=== PATIENT | female | born 2000 | race Caucasian/White ===

== ENCOUNTER 2018-05-02 01:40 | Emergency (ER) | payer SELFPAY ==
[2018-05-02 01:40] VITALS: BP 135/80; PULSE 123; RESP 18; TEMP 37.1; O2SAT 100
[2018-05-02 02:37] LABS: WBC Urine None Seen (0-5/HPF)
[2018-05-02 02:40] LABS: Appearance Urine UA CLEAR; Bilirubin Urine UA NEGATIVE (NEGATIVE); Color Urine UA YELLOW; Glucose Urine UA NEGATIVE (Normal); Ketones Urine UA NEGATIVE (NEGATIVE); Leukocyte Esterase Urine UA NEGATIVE (NEGATIVE); Nitrite Urine UA NEGATIVE (Negative); Occult Blood Urine UA NEGATIVE (Negative); Protein Urine UA NEGATIVE (Negative); Urobilinogen Urine UA 0.2 E.U./dL (0.2)
[2018-05-02 02:42] LABS: Pregnancy Test Urine Negative (Negative)
[2018-05-02 02:43] LABS: Bacteria Urine Few (2-10); Culture Indicated Urine Cult Not Indicated; RBC Urine 0-1/HPF (0-5/HPF); Squamous Epithelial Cell Urine 0-1 /HPF
[2018-05-02 02:56] VITALS: PULSE 103
--- NOTE | 2018-05-02 03:10 | DI.US.S_ITS ---
PROCEDURE: US ABDOMEN COMPLETE INDICATIONS: RLQ pain TECHNIQUE: Real-time scanning was performed of the abdominal and retroperitoneal organs, with image documentation. COMPARISON: None. FINDINGS: Liver: Liver is normal in size and homogeneous in echotexture. Gallbladder: The gallbladder wall measures 2 mm in thickness. No stones, sludge, pericholecystic fluid, or sonographic Childress sign. Biliary ducts: Intrahepatic bile ducts are non-dilated. Extrahepatic bile duct caliber measures 6 mm. Normal is 6-7 mm or less in diameter, or 10 mm or less post-cholecystectomy. Pancreas: Pancreas is not visualized due to bowel gas. Spleen: Spleen is normal in size and homogeneous in echotexture. Kidneys: Kidneys are normal in size and echotexture. Right kidney measures 11.7 cm long; left kidney measures 11.1 cm long. No hydronephrosis or nephrolithiasis. No solid masses. Aorta: Visualized aorta is normal in caliber at less than 3 cm. Iliacs: The iliacs are non-visualized due to bowel gas. IVC: Intrahepatic inferior vena cava is patent. Miscellaneous: No free abdominal fluid. The appendix was not visualized. IMPRESSION: 1. No cholelithiasis or findings to suggest choledocholithiasis or acute cholecystitis. 2. The appendix is not visualized. Acute appendicitis cannot be excluded. These findings are concordant with the overnight interpretation. Dictated by: Isabel Andrews M.D. on 05/02/2018 at 8:20 Approved by: Isabel Andrews M.D. on 05/02/2018 at 8:21
--- NOTE | 2018-05-02 03:21 | ED_ITS ---
HPI - Abdominal Pain General Chief Complaint: Abdominal Pain Stated Complaint: STOMACH PAINS X1 DAYS Time Seen by Provider: 05/02/18 03:10 Source: patient Mode of arrival: ambulatory History of Present Illness HPI narrative: This is a 17-year-old female who comes to the emergency department with complaint of right-sided abdominal pain. Patient states that started this evening. She has had similar symptoms once remotely in the past but it resolved. She states that it is pretty much constant. Laughing or jumping up and down makes it worse. Nothing seems to make it better other than having a warm heating pad across her belly. Patient has not had any vomiting she felt a little nauseous earlier. She has not had any fevers. She denies any back or flank pain. She has not had any diarrhea or constipation. She has not had any urinary frequency, urgency or dysuria. She is on her menses. She states that is normally irregular Related Data Previous Rx's Medication Instructions Recorded sumatriptan succinate [Imitrex] 50 mg PO PRN PRN #10 tab 06/03/16 [DANIEL IUD] #0 06/24/16 albuterol sulfate [Ventolin HFA] 1 puff INH Q4HP PRN #1 ea 07/30/16 acetaminophen-codeine 1 tab PO Q6HP PRN #20 tab 11/30/16 amoxicillin 875 mg PO BID #14 tab 11/30/16 Allergies Allergy/AdvReac Type Severity Reaction Status Date / Time cefuroxime Allergy Unknown Unverified 10/21/17 11:48 Review of Systems Review of Systems All systems reviewed & are unremarkable except as noted in HPI and below Constitutional Denies fever(s) Gastrointestinal Gastrointestinal: Reports abdominal pain (Right lower quadrant), Denies melena, Denies hematochezia, Denies constipation, Denies diarrhea, Reports nausea and Denies vomiting Genitourinary Reports as per HPI, Denies urinary frequency, Denies urinary incontinence, Denies urinary hesitancy, Denies urinary urgency, Denies vaginal discharge, Denies vaginal odor and Reports other (Vaginal bleeding, patient is on her.) Musculoskeletal Denies back pain PFSH Surgical History H/O eye surgery (Acute) Social History Smoking Status: Never smoker alcohol intake: former substance use type: marijuana Exam Narrative Exam Narrative: GENERAL: Alert and oriented x three, well-nourished, well- appearing female in mild distress. HEENT: Head normocephalic, atraumatic, EOMI, pupils reactive, face symmetric, moist mucous membranes NECK: Supple, full range of motion CARDIOVASCULAR: Regular rate and rhythm without murmurs, rubs or gallops. RESPIRATORY: Breath sounds equal bilaterally, no wheezes rales or rhonchi. ABDOMEN: Soft, patient has mild right lower quadrant tenderness although it is a little bit more suprapubic.. Normoactive bowel sounds all 4 quadrants. No guarding or rebound, rigidity, no mass : No CVA tenderness EXTREMITIES: Normal range of motion, no clubbing or edema. Neurovascularly intact NEUROLOGICAL: Cranial nerves II through XII grossly intact. Moving all extremities SKIN: Warm, dry, no petechiae, no rashes or lesions. Initial Vital Signs Initial Vital Signs: Vital Signs Temperature 98.7 F 05/02/18 01:40 Pulse Rate 123 H 05/02/18 01:40 Respiratory Rate 18 05/02/18 01:40 Blood Pressure 135/80 05/02/18 01:40 Pulse Oximetry 100 05/02/18 01:40 Course Orders Ordered: ED Orders 05/02/18 02:30 Test Urine Stat Urinalysis and Microscopic Stat 05/02/18 03:10 US abdomen complete Stat 05/02/18 03:18 Complete Blood Count AUTO DIFF Stat Comprehensive Metabolic Panel Stat Lipase Stat Discontinued Medications Sodium Chloride (Normal Saline 0.9%) 1,000 mls @ 150 mls/hr IV CONT NING Last Admin: 05/02/18 04:28 Dose: Vital Signs - 8 hr 05/02/18 01:40 05/02/18 02:56 05/02/18 04:30 Temperature 98.7 F Pulse Rate 123 H 103 H 91 H Respiratory Rate 18 Blood Pressure 135/80 Blood Pressure [Left Arm] 90/47 L Pulse Oximetry 100 99 05/02/18 05:00 Temperature 98.9 F Pulse Rate 91 H Respiratory Rate Blood Pressure 125/62 Blood Pressure [Left Arm] Pulse Oximetry 100 MDM - Abdominal Pain Lab Data Attestation: I reviewed the patient's lab results. Result diagrams: 05/02/18 03:18 05/02/18 03:18 Lab Results 05/02/18 05/02/18 05/02/18 Range/Units 02:30 02:30 03:18 WBC 19.8 H (4.5-11.0) X10^3/uL RBC 4.43 (4.0-5.2) X10^6/uL Hgb 13.9 (12.0-16.0) g/dL Hct 40.3 (36-46) % MCV 91.0 (80-100) fL MCH 31.4 (26-34) PG MCHC 34.5 (30-36) % RDW 12.1 (11.6-14.8) % Plt Count 297 (150-400) X10^3/uL Neut % (Auto) 80.2 H (50-75) % Lymph % (Auto) 9.5 L (25-40) % [place] % (Auto) 9.3 (3-14) % Eos % (Auto) 0.3 L (2-4) % Baso % (Auto) 0.7 (0-2) % Neut # (Auto) 40963 H (6316-8328) /uL Sodium (137-145) mmol/L Potassium (3.4-5.1) mmol/L Chloride (98-107) mmol/L Carbon Dioxide (22-32) mmol/L BUN (7-17) mg/dL Creatinine (0.52-1.04) mg/dL Estimated GFR (>60) mL/min BUN/Creatinine Ratio (6-22) Glucose (70-100) mg/dL Calcium (8.4-10.2) mg/dL Total Bilirubin (0.2-1.3) mg/dL AST (14-36) IU/L ALT (9-52) IU/L Alkaline Phosphatase (38-126) U/L Total Protein (6.3-8.2) g/dL Albumin (3.5-5.0) g/dL Globulin (1.7-4.1) g/dL Albumin/Globulin Ratio (1.0-2.8) Lipase (23-300) U/L Urine Color Yellow Urine Appearance Clear Urine pH 6.0 (4.5-8.0) Ur Specific [place] 1.020 (1.000-1.035) Urine Protein Negative (Negative) Urine Glucose (UA) Negative (Normal) g/dL Urine Ketones Negative (NEGATIVE) Urine Occult Blood Negative (Negative) Urine Nitrate Negative (Negative) Urine Bilirubin Negative (NEGATIVE) Urine Urobilinogen 0.2 (0.2) E.U./dL Ur Leukocyte Esterase Negative (NEGATIVE) Urine RBC 0-1/hpf (0-5/HPF) Urine WBC None seen (0-5/HPF) Ur Squamous Epith Cells 0-1 /hpf Urine Bacteria Few (2-10) H (None) Ur Culture Indicated? Cult not indicated Micro UA Comment Not Reportable Urine Test Negative (Negative) 05/02/18 Range/Units 03:18 WBC (4.5-11.0) X10^3/uL RBC (4.0-5.2) X10^6/uL Hgb (12.0-16.0) g/dL Hct (36-46) % MCV (80-100) fL MCH (26-34) PG MCHC (30-36) % RDW (11.6-14.8) % Plt Count (150-400) X10^3/uL Neut % (Auto) (50-75) % Lymph % (Auto) (25-40) % [place] % (Auto) (3-14) % Eos % (Auto) (2-4) % Baso % (Auto) (0-2) % Neut # (Auto) (9041-6161) /uL Sodium 145 (137-145) mmol/L Potassium 3.7 (3.4-5.1) mmol/L Chloride 106 (98-107) mmol/L Carbon Dioxide 27 (22-32) mmol/L BUN 13 (7-17) mg/dL Creatinine 0.60 (0.52-1.04) mg/dL Estimated GFR > 60.0 (>60) mL/min BUN/Creatinine Ratio 21.7 (6-22) Glucose 107 H (70-100) mg/dL Calcium 9.6 (8.4-10.2) mg/dL Total Bilirubin 0.5 (0.2-1.3) mg/dL AST 21 (14-36) IU/L ALT 29 (9-52) IU/L Alkaline Phosphatase 70 (38-126) U/L Total Protein 7.2 (6.3-8.2) g/dL Albumin 4.2 (3.5-5.0) g/dL Globulin 3.0 (1.7-4.1) g/dL Albumin/Globulin Ratio 1.4 (1.0-2.8) Lipase 64 (23-300) U/L Urine Color Urine Appearance Urine pH (4.5-8.0) Ur Specific [place] (1.000-1.035) Urine Protein (Negative) Urine Glucose (UA) (Normal) g/dL Urine Ketones (NEGATIVE) Urine Occult Blood (Negative) Urine Nitrate (Negative) Urine Bilirubin (NEGATIVE) Urine Urobilinogen (0.2) E.U./dL Ur Leukocyte Esterase (NEGATIVE) Urine RBC (0-5/HPF) Urine WBC (0-5/HPF) Ur Squamous Epith Cells Urine Bacteria (None) Ur Culture Indicated? Micro UA Comment Urine Test (Negative) Imaging Data US - abdomen: Attestation: I personally reviewed and interpreted this imaging study as follows: Radiologist's impression: Nonvisualized appendix. No suspicious right lower quadrant findings. Nonvisualized pancreas. MDM Narrative Medical decision making narrative: The patient does have right lower quadrant pain. We discussed getting a CT scan but she prefers to start with ultrasound imaging. We did discuss if her white count is quite elevated we may need to discuss further evaluation. Her urine does not show any signs of infection, no . Lab work shows an elevated white count but no other major abnormalities. Patient deferred any pain medications. We did go back and discuss that she has an elevated white count discussed watchful waiting versus further evaluation with imaging. I do have suspicion for possible appendicitis. Patient wishes to return home at this time. She defers CT imaging although it was read offered she does have tenderness in the right lower quadrant but she does not have an acute abdomen in her tenderness is mild to moderate. She has not increased in her level tenderness during her stay here. She has not had any pain medication while she is here. She does relate she needs to return if her symptoms are not improving or worsening. Discharge Plan Departure Patient Disposition: Home Clinical Impression: Abdominal pain Discharge Date/Time: 05/02/18 05:01 Interventions: ED Discharge Assessment Last Done: 05/02/18 05:00 Instructions: DI for Abdominal Pain-Adult Activity Restrictions/Additional Instructions: Return to the emergency department if you're having any worsening symptoms or if they are not resolving in the next 12-24 hours. Tonight your lab work does show an elevated white count which can be consistent with infection and appendicitis. We have not ruled out an appendicitis, your ultrasound does not visualize the appendix and you are having tenderness in the right lower quadrant. As we have discussed return if your symptoms don't improve or resolve. You may take ibuprofen or Tylenol as needed for pain. Prescriptions: No Action sumatriptan succinate [Imitrex] 50 MG tablet 50 mg PO PRN PRNQty: 10 RF: 0 [DANIEL IUD] Qty: 0 RF: 0 albuterol sulfate [Ventolin HFA] 90 MCG/PUFF HFA aerosol inhaler 1 puff INH Q4HP PRNQty: 1 RF: 0 acetaminophen-codeine 30 MG/300 MG tablet 1 tab PO Q6HP PRNQty: 20 RF: 0 amoxicillin 875 MG tablet 875 mg PO BID Qty: 14 RF: 0
[2018-05-02 03:27] LABS: Add Manual Diff / Slide Review NO; Basophils Percent Auto 0.7 % (0-2); Eosinophils Percent Auto 0.3 % (2-4); Hematocrit 40.3 % (36-46); Hemoglobin 13.9 g/dL (12.0-16.0); Lymphocytes Percent Auto 9.5 % (25-40); Mean Corpuscular HGB Conc 34.5 % (30-36); Mean Corpuscular Hemoglobin 31.4 PG (26-34); Monocytes Percent Auto 9.3 % (3-14); Neutrophils Absolute Auto 15800 /uL (3000-5900); Neutrophils Percent Auto 80.2 % (50-75); Platelet Count 297 X10^3/uL (150-400); Red Blood Cell Count 4.43 X10^6/uL (4.0-5.2); Red Cell Distribution Width 12.1 % (11.6-14.8); White Blood Cell Count 19.8 X10^3/uL (4.5-11.0)
[2018-05-02 03:39] LABS: Alanine Aminotransferase 29 IU/L (9-52); Albumin 4.2 g/dL (3.5-5.0); Albumin Globulin Ratio 1.4 (1.0-2.8); Alkaline Phosphatase 70 U/L (38-126); Aspartate Aminotransferase 21 IU/L (14-36); BUN Creatinine Ratio 21.7 (6-22); Bilirubin Total 0.5 mg/dL (0.2-1.3); Blood Urea Nitrogen 13 mg/dL (7-17); Calcium 9.6 mg/dL (8.4-10.2); Carbon Dioxide 27 mmol/L (22-32); Chloride 106 mmol/L (98-107); Estimated Glomerular Filt Rate > 60.0 mL/min (>60); Glucose 107 mg/dL (70-100); HEMOLYSIS < 15 (0-50); Lipase 64 U/L (23-300); Potassium 3.7 mmol/L (3.4-5.1); Sodium 145 mmol/L (137-145); Total Protein 7.2 g/dL (6.3-8.2)
[2018-05-02 04:30] VITALS: BP 90/47; PULSE 91; O2SAT 99
[2018-05-02 05:00] VITALS: BP 125/62; PULSE 91; TEMP 37.2; O2SAT 100
== END 2018-05-02 05:01 | disposition home or self-care (01) ==
PROVIDERS: Emergency Provider Emergency Medicine; PCP Family Medicine
DX: R10.9 Unspecified abdominal pain (principal)
CPT/HCPCS: 36415; 36591; 76700; 80053; 81001; 81025; 83690; 85025; 99282; 99284

== ENCOUNTER 2019-09-02 21:12 | Emergency (ER) | payer OTHER, MEDICAID, SELFPAY ==
[2019-09-02 21:30] VITALS: BP 149/76; PULSE 95; RESP 14; TEMP 36.8; O2SAT 99; BMI 38.0
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
[2019-09-02 21:53] VITALS: BP 130/60; PULSE 103; RESP 15; O2SAT 98
== END 2019-09-02 21:54 | disposition home or self-care (01) ==
PROVIDERS: Emergency Provider Emergency Medicine; PCP Family Medicine
DX: S16.1XXA Strain of muscle, fascia and tendon at neck level, initial encounter (principal); V87.7XXA Person injured in collision between other specified motor vehicles (traffic), initial encounter
CPT/HCPCS: 99281

== ENCOUNTER → 2019-10-08 15:41 | Outpatient (CLI) | payer OTHER, SELFPAY | PROVIDERS: Visit Provider Physician Assistant | DX: J02.9 Acute pharyngitis, unspecified (principal) | CPT/HCPCS: 87070 ==

== ENCOUNTER → 2021-01-21 13:45 | Outpatient (CLI) | payer OTHER, MEDICAID, SELFPAY ==
--- NOTE | 2021-01-21 13:47 | DI.US.S_ITS ---
PROCEDURE: US OB <= 14 WEEKS FETUS INDICATIONS: Dating Viability OUTSIDE/PRIOR DATING DATA: Last menstrual period (LMP): 11/25/2020. LMP-based estimated date of delivery (ABIOLA): 09/01/2021. First dating scan (date and location): 01/21/2021. Estimated date of delivery (ABIOLA) from first dating scan: 09/01/2021. TECHNIQUE: Real-time scanning was performed of the fetus and maternal pelvic organs, with image documentation. Endovaginal scanning was also performed to better visualize the fetus and maternal ovaries. COMPARISON: None. FINDINGS: Embryo: [place]-rump length measuring 1.7 cm. Gestational age 8 weeks 1 day. Yolk sac is seen. Heart rate: 173 bpm Measurement variability in dating: +/- 4 weeks by LMP, +/- 7 days by mean sac diameter (use before 6 weeks gestation if crown-rump length not able to be measured), +/- 5 days by crown-rump length (up to 8 weeks 6 days gestation), +/- 7 days by crown-rump length (up to 13 weeks 6 days gestation). Maternal organs: Ovaries within normal limits. Right corpus luteum. IMPRESSION: 1. [place] living intrauterine at 8 weeks 1 day based on today's crown rump length. 2. No perigestational hemorrhage. Dictated by: Jhonatan Mace M.D. on 01/21/2021 at 16:00 Approved by: Jhonatan Mace M.D. on 01/21/2021 at 16:01
== END ==
PROVIDERS: PCP Family Medicine; Referring Provider Family Medicine; Visit Provider Family Medicine
DX: Z34.01 Encounter for supervision of normal first pregnancy, first trimester (principal); Z3A.08 8 weeks gestation of pregnancy
CPT/HCPCS: 76801; 76830

== ENCOUNTER → 2021-03-25 14:08 | Outpatient (CLI) | payer OTHER, MEDICAID, SELFPAY ==
[2021-03-25 15:31] LABS: Appearance Urine UA CLEAR; Bilirubin Urine UA NEGATIVE (NEGATIVE); Color Urine UA YELLOW; Glucose Urine UA NEGATIVE (Negative); Ketones Urine UA NEGATIVE (NEGATIVE); Leukocyte Esterase Urine UA NEGATIVE (NEGATIVE); Nitrite Urine UA NEGATIVE (Negative); Occult Blood Urine UA NEGATIVE (Negative); Protein Urine UA TRACE (Negative); Urobilinogen Urine UA 0.2 E.U./dL (0.2)
[2021-03-25 15:33] LABS: Add Manual Diff / Slide Review NO; Basophils Absolute Auto 100 /uL (0-100); Basophils Percent Auto 0.5 % (0-2); Eosinophils Absolute Auto 100 /uL (0-450); Eosinophils Percent Auto 0.9 % (2-4); Hematocrit 36.9 % (36-46); Hemoglobin 12.7 g/dL (12.0-16.0); Lymphocytes Absolute Auto 3100 /uL (1100-4500); Lymphocytes Percent Auto 27.8 % (25-40); Mean Corpuscular HGB Conc 34.5 % (30-36); Mean Corpuscular Hemoglobin 32.4 PG (26-34); Mean Corpuscular Volume 93.9 fL (80-100); Monocytes Absolute Auto 700 /uL (0-900); Neutrophils Absolute Auto 7200 /uL (1500-7000); Neutrophils Percent Auto 64.8 % (50-75); Platelet Count 289 X10^3/uL (150-400); Red Blood Cell Count 3.92 X10^6/uL (4.0-5.2); Red Cell Distribution Width 12.5 % (11.6-14.8); White Blood Cell Count 11.1 X10^3/uL (4.5-11.0)
[2021-03-25 18:40] LABS: HIV 1 & 2 Ab/Ag 4th Gen Combo NEGATIVE (NEGATIVE); Hep C Virus Ab w/Reflex Quant NEGATIVE s/c (NEGATIVE); Hepatitis B Surface Antigen NEGATIVE s/c (NEGATIVE)
[2021-03-26 07:10] LABS: RPR Screen Non Reactive (Non Reactive)
[2021-03-26 08:40] LABS: Varicella IgG Antibody 1033 index (Immune >165)
[2021-03-29 00:32] LABS: AFP, Serum 23.9 ng/mL (.); Calc Gestational Age EDD (.); Estriol, Free 1.48 ng/mL (.); Inhibin A, Dimeric 96.27 pg/mL (.); Inhibin A, MoM 0.72 (.); Maternal Ethnicity Caucasian (.); Maternal Weight 191 lbs (.); Number of Fetuses No (.); OSBR Risk 1 IN 10000 (.); Results Report (.); Test Results *Screen Negative* (.); hCG, MoM 0.65 (.); hCG, Serum 17945 mIU/mL (.)
== END ==
PROVIDERS: PCP Family Medicine; Referring Provider Family Medicine; Visit Provider Family Medicine
DX: Z34.01 Encounter for supervision of normal first pregnancy, first trimester (principal); Z3A.20 20 weeks gestation of pregnancy
CPT/HCPCS: 36415; 80055; 81003; 82105; 82677; 84702; 86336; 86787; 86803; 86850; 86900; 86901; 87086; 87389

== ENCOUNTER → 2021-04-15 13:51 | Outpatient (CLI) | payer OTHER, MEDICAID, SELFPAY ==
--- NOTE | 2021-04-15 13:51 | DI.US.S_ITS ---
PROCEDURE: US OB >= 14 WEEKS FETUS INDICATIONS: ANATOMY OUTSIDE/PRIOR DATING DATA: Last menstrual period (LMP): 11/25/2020. LMP-based estimated date of delivery (ABIOLA): 09/01/2021. First dating scan (date and location): 01/21/2021. Estimated date of delivery (ABIOLA) from first dating scan: 09/01/2021. TECHNIQUE: Real-time scanning was performed of the fetus, with image documentation and biometric measurements. COMPARISON: None. FINDINGS: General: A single living intrauterine gestation is present. Presentation: Variable Placenta: Placental position is anterior, without previa. Amniotic fluid index: 14.6 cm, normal range is 5-24 cm. heart rate: 157 beats per minute. Maternal cervical canal: 3.7 cm long. Normal lower limit is 2.5 cm. biometrics: Biparietal diameter: 4.5 cm, 19 weeks, 5 days Head circumference: 16.9 cm, 19 weeks, 3 days Abdominal circumference: 14.7 cm, 20 weeks, 0 day Femur length: 2.9 cm, 19 weeks, 0 day Estimated gestational age from initial scan: 20 weeks, 1 day Composite gestational age from present scan: 19 weeks, 4 days Estimated weight and percentile: 298 grams, 17 percent Measurement variability for biometric dating: +/- 7 days from 14 weeks to 15 weeks 6 days gestation, +/- 10 days from 16 weeks to 21 weeks 6 days gestation, +/- 2 weeks from 22 weeks to 27 weeks 6 days gestation, +/- 3 weeks for 28 weeks gestation or later. weight reference: 4500 g or EFW >90/95% is considered macrosomia or large for gestational age. EFW <10% is small for gestational age. EFW 5% or less is considered intra-uterine growth restriction. Anatomic survey: Neuro: Ventricles are non-dilated at less than 10 mm. Cisterna magna is normal at 3-11 mm. Cerebellum is normal in size and morphology. Nuchal skin fold: Normal at less than 6 mm between 14-21 weeks gestational age. Face: Nose and lips, facial profile are normal. Spine: No evidence for spina bifida. Heart: 4-chambered heart is present, with normal ventricular outflow tracts. Diaphragm: Diaphragm is intact. Stomach: Left-sided stomach is present. Kidneys: No hydronephrosis. Normal is less than 5 mm in 2nd trimester, less than 7 mm in 3rd trimester. Cord: 3-vessel cord has orthotopic insertion. Bladder: Normal in size. Extremities: All 4 extremities identified. IMPRESSION: 1. Single live intrauterine with fetus in variable presentation. heart rate is 157 beats per minute. Normal amount of amniotic fluid. Estimated weight is 298 grams and is at 17 percent. 2. Normal anatomic survey. Dictated by: Wm Nicole M.D. on 04/15/2021 at 16:19 Approved by: Wm Nicole M.D. on 04/15/2021 at 16:21
== END ==
PROVIDERS: PCP Family Medicine; Referring Provider Family Medicine; Visit Provider Family Medicine
DX: Z36.89 Encounter for other specified antenatal screening (principal); Z3A.19 19 weeks gestation of pregnancy
CPT/HCPCS: 76811

== ENCOUNTER → 2021-08-12 14:39 | Outpatient (CLI) | payer OTHER, MEDICAID, SELFPAY ==
[2021-08-13 12:54] LABS: Strep Grp B PCR NEG for Grp B Strep
== END ==
PROVIDERS: PCP Family Medicine; Referring Provider Family Medicine; Visit Provider Family Medicine
DX: Z36.85 Encounter for antenatal screening for Streptococcus B; Z3A.37 37 weeks gestation of pregnancy
CPT/HCPCS: 87653

== ENCOUNTER 2021-08-30 08:00 | Outpatient (CLI) | payer OTHER, MEDICAID, SELFPAY ==
--- NOTE | 2021-08-30 08:42 | PM.OBTRLD ---
Visit Information Visit Information Date of evaluation: 08/30/21 Primary OB Provider: Yulia Mcgowan Reason for Evaluation: Yes rule out labor Comments/Additional reasons for admission: 20 year old at 39+5 weeks gestation with regular contractions this morning. Denies leaking or bleeding and reports good FM. Initial BP elevated however repeat improved. Denies RODRÍGUEZ, vision changes, RUQ pain or edema. Vital Signs Vital Signs: T 36.3 BP 159/87 P 101 Repeat BP 131/74 P 96 PFSH Medical History Pharyngitis (~10/08/19) Surgical History H/O eye surgery Family History Father No problems noted. Mother No problems noted. Grandfather No problems noted. Grandmother No problems noted. Grandfather No problems noted. Grandmother No problems noted. Social History marital status: unmarried,single occupational status: employed Smoking Status: Never smoker alcohol intake: former substance use type: marijuana Evaluation Evaluation Baseline heart rate: 130 Variability: Moderate (11-25) monitor accelerations: Present Monitor Decelerations: Absent Contraction Frequency (minutes): 3 Category of Tracing: Reactive Cervical dilation (cm): 0 Cervical effacement (%): 0 station: -4 Diagnosis, Plan/Disposition Final Diagnosis (1) 39 weeks gestation of : Status: Acute Plan/Disposition Plan: 20 year old at 39+5 weeks with contractions every 2-3 min. SVE 0/0/ high. Labor precautions reviewed by RN. Return to center as needed, otherwise follow up in clinic as scheduled 09/03/21. OB Disposition: home
== END 2021-08-30 08:45 | disposition home or self-care (01) ==
LOC: OB 09-03 12:39
PROVIDERS: PCP Family Medicine; Referring Provider Family Medicine; Visit Provider Family Medicine
DX: O26.893 Other specified pregnancy related conditions, third trimester (principal); O47.1 False labor at or after 37 completed weeks of gestation; Z3A.39 39 weeks gestation of pregnancy
CPT/HCPCS: 59025; G0378; G0379

== ENCOUNTER 2021-08-31 02:48 | Observation (INO) | payer SELFPAY ==
--- NOTE | 2021-08-31 10:07 | PM.OBTRLD ---
Visit Information Visit Information Date of evaluation: 08/31/21 Primary OB Provider: Yulia Mcgowan On-call OB Provider: Iris Webb Reason for Evaluation: Yes rule out labor Vital Signs Vital Signs: blood pressure 129/82, temperature 97.2?, pulse of 94 PFSH Medical History Pharyngitis (~10/08/19) Surgical History H/O eye surgery Family History Father No problems noted. Mother No problems noted. Grandfather No problems noted. Grandmother No problems noted. Grandfather No problems noted. Grandmother No problems noted. Social History marital status: unmarried,single occupational status: employed Smoking Status: Never smoker alcohol intake: former substance use type: marijuana Review of Systems Review of Systems Narrative: patient came in complaining contractions however they have not become regular yet. No leakage of fluid. No headaches, scotomata, epigastric pain. Evaluation Evaluation Baseline heart rate: 135 Variability: Moderate (11-25) monitor accelerations: Present Monitor Decelerations: Absent Contraction Frequency (minutes): 4 Uterine Contraction Intensity: Moderate Category of Tracing: Reactive Status: Category l Cervical dilation (cm): 1 Cervical effacement (%): 60 station: -4 Diagnosis, Plan/Disposition Final Diagnosis (1) 39 weeks gestation of : Status: Acute (2) False labor after 37 completed weeks of gestation: Status: Acute Plan/Disposition Plan: patient discharged home to return if her contractions increase in intensity and frequency. OB Disposition: home
== END 2021-08-31 03:36 | disposition home or self-care (01) ==
PROVIDERS: Admitting Provider Specialist; PCP Family Medicine; Referring Provider Specialist; Visit Provider Specialist
DX: O47.1 False labor at or after 37 completed weeks of gestation (principal); Z3A.39 39 weeks gestation of pregnancy
CPT/HCPCS: 59025; G0378; G0379

== ENCOUNTER 2021-08-31 11:39 | Inpatient (IN) | payer OTHER, MEDICAID, SELFPAY ==
[2021-08-31] MEDS: LACTATED RINGERS 1,000 ML 100 ML IV ×2 (12:35→13:55)
[2021-08-31 12:46] LABS: Add Manual Diff / Slide Review NO; Basophils Absolute Auto 100 /uL (0-100); Basophils Percent Auto 0.8 % (0-2); Eosinophils Absolute Auto 0 /uL (0-450); Eosinophils Percent Auto 0.3 % (2-4); Hematocrit 36.3 % (36-46); Hemoglobin 12.7 g/dL (12.0-16.0); Lymphocytes Absolute Auto 2600 /uL (1100-4500); Lymphocytes Percent Auto 17.7 % (25-40); Mean Corpuscular HGB Conc 34.9 % (30-36); Mean Corpuscular Hemoglobin 32.1 PG (26-34); Monocytes Absolute Auto 900 /uL (0-900); Neutrophils Absolute Auto 10800 /uL (1500-7000); Neutrophils Percent Auto 75.2 % (50-75); Platelet Count 266 X10^3/uL (150-400); Red Blood Cell Count 3.94 X10^6/uL (4.0-5.2); Red Cell Distribution Width 13.5 % (11.6-14.8); White Blood Cell Count 14.4 X10^3/uL (4.5-11.0)
[2021-08-31 13:04] LABS: COVID19 -Nasal RAPID Negative (Negative)
--- NOTE | 2021-08-31 13:18 | PM.OBHP.1 ---
OB HPI Date/Time Date of admission: 08/31/21 Date Patient Seen: 08/31/21 Time Patient Seen: 13:30 History of Present Condition Chief complaint: : 1 Para: 0 Estimated Date of Delivery: 09/01/21 Estimated Gestational Age (weeks): 39 Narrative: Adrienne Mccray is a 20 year old female admitted in active labor History of Present care: good care, initiated at week # (9), number of visits (10) and pounds weight gain (19) Dating criteria: LMP confirmed by 1st trimester US Ultrasounds: normal mid trimester US Obstetrical complications: none Medical complications: none Preadmission Labs Blood type: A (+) positive -: Antibody screen: negative, GBS status: negative, HBsAG: negative, HIV: negative and RPR/VDLR: negative -: Chlamydia screen: not detected and Gonorrhea screen: not detected -: Rubella: immune and Varicella: immune HCAB: negative Quad screen: Normal Evaluation Evaluation Baseline heart rate: 145 Variability: Moderate (11-25) monitor accelerations: Present Monitor Decelerations: Absent Contraction Frequency (minutes): 4 Uterine Contraction Intensity: Strong/Firm Category of Tracing: Reactive Status: Category l Dilation (cm): 3 Effacement (%): 90 station: -2 [facility] Medical History Pharyngitis (~10/08/19) Surgical History H/O eye surgery Family History Father No problems noted. Mother No problems noted. Grandfather No problems noted. Grandmother No problems noted. Grandfather No problems noted. Grandmother No problems noted. Social History marital status: unmarried,single occupational status: employed Smoking Status: Never smoker alcohol intake: former substance use type: marijuana Meds Home Medications and Allergies Home Medications Medication Instructions Recorded Confirmed Type No Known Home Medications 01/28/21 08/31/21 History Allergies Allergy/AdvReac Type Severity Reaction Status Date / Time cefuroxime Allergy Unknown Verified 11/22/20 12:03 azithromycin AdvReac abdominal Verified 11/22/20 12:03 pain Review of Systems Review of Systems Narrative: No headache, scotomata, epigastric pain, GFM, no leakage of fluid OB Exam Narrative Exam Narrative: HEENT: WNL, lungs clear, heart RRR no S3 S4 or m, abdomen gravid, nontender. Fetus vertex. Extremities with Tr edema, NT Objective Labs Result Diagrams: 08/31/21 12:20 Labs: Laboratory Results - last 24 hr 08/31/21 08/31/21 12:20 12:20 WBC 14.4 H RBC 3.94 L Hgb 12.7 Hct 36.3 MCV 92.0 MCH 32.1 MCHC 34.9 RDW 13.5 Plt Count 266 Neut % (Auto) 75.2 H Lymph % (Auto) 17.7 L [place]th[place]omew % (Auto) 6.0 Eos % (Auto) 0.3 L Baso % (Auto) 0.8 Neut # (Auto) 01768 H Lymph # (Auto) 2600 [place]w # (Auto) 900 Eos # (Auto) 0 Baso # (Auto) 100 SARS-CoV-2 (PCR) Negative Assessment and Plan Assessment and Plan Assessment and Plan narrative: 39.6 week gestation in active labor. Pt. ok to get epidural. Anticipate vaginal delivery Time Spent with Patient Total time spent with greater than 50% in coordination of care (as documented) at patient's floor/unit and/or counseling patient:: less than 15 minutes
[2021-08-31] MEDS: fentaNYL 100 MCG/2 ML INJ IV ×2 (13:20→14:00)
[2021-08-31] MEDS: FENT 2MCG/ML BUPIV 0.125% EPI 200 MCG/100 ML PLAST..BAG 10 MCG EPIDURAL ×2 (13:40→20:01)
--- NOTE | 2021-08-31 21:33 | PM.OBPRVD ---
Labor & Delivery Delivery date: 08/31/21 Intrapartal Events: None Cervical ripening method: none Induction method: none Delivery monitor: external FHT and external uterine Route of delivery: L&D Laceration Description: Superficial ( left periurethral no suturing required) Estimated blood loss (mL): 100 Anesthesia Type: Epidural Narrative: Patient arrived on Labor and delivery in active labor. She received an epidural catheter for pain control. She had spontaneous rupture membranes for clear fluid. heart tones category 1 to category 2 throughout labor. She delivered spontaneously, over an intact perineum. The viable female infant was placed on maternal abdomen. After the cord stopped pulsating the cord was clamped, cut, and cord bloods obtained. The placenta delivered spontaneously, intact, with 3 vessels. There were no cervical vaginal or perineal tears other than a left periurethral superficial tear that did not require suturing. Both mother doing well. Baby 1: Infant gender: Female Presentation: vertex Position: Left Occiput Anterior Placenta delivery description: Spontaneous Cord Vessel Description: 3 Vessels score (1 min): 8 score (5 min): 9 Plan for aftercare: Routine care
[2021-09-01] MEDS: IBUPROFEN 600 MG TABLET PO ×3 (02:03→18:41)
[2021-09-01 06:04] LABS: Add Manual Diff / Slide Review NO; Basophils Absolute Auto 100 /uL (0-100); Basophils Percent Auto 0.9 % (0-2); Eosinophils Absolute Auto 0 /uL (0-450); Eosinophils Percent Auto 0.3 % (2-4); Hematocrit 31.6 % (36-46); Hemoglobin 11.1 g/dL (12.0-16.0); Lymphocytes Absolute Auto 3200 /uL (1100-4500); Lymphocytes Percent Auto 19.3 % (25-40); Mean Corpuscular HGB Conc 35.2 % (30-36); Mean Corpuscular Hemoglobin 32.9 PG (26-34); Mean Corpuscular Volume 93.5 fL (80-100); Monocytes Absolute Auto 1600 /uL (0-900); Monocytes Percent Auto 9.8 % (3-14); Neutrophils Absolute Auto 11800 /uL (1500-7000); Neutrophils Percent Auto 69.7 % (50-75); Platelet Count 219 X10^3/uL (150-400); Red Blood Cell Count 3.38 X10^6/uL (4.0-5.2); Red Cell Distribution Width 13.6 % (11.6-14.8); White Blood Cell Count 16.8 X10^3/uL (4.5-11.0)
--- NOTE | 2021-09-01 10:44 | PM.OBPN.1 ---
Subjective - OB Subjective Patient comments: no complaints and tolerating diet [place] baby status: doing well and nursing well feeding status: exclusively breast feeding Date Patient Seen: 09/01/21 Time Patient Seen: 10:44 Interval history: Patient is approximately 13 hours status post spontaneous vaginal delivery with no significant tears who is doing well. No headaches, scotomata, epigastric pain. Mild cramping. Exam Vital Signs (past 8 hours): blood pressure 135/73, pulse of 88, temperature 98.1? Narrative Exam Narrative: Abdomen is soft, nontender. Uterus is firm, at U, nontender. Mild lochia. Extremities with trace edema and nontender Objective Labs Result Diagrams: 09/01/21 05:37 Labs: Laboratory Results - last 24 hr 08/31/21 08/31/21 08/31/21 12:20 12:20 12:20 WBC 14.4 H RBC 3.94 L Hgb 12.7 Hct 36.3 MCV 92.0 MCH 32.1 MCHC 34.9 RDW 13.5 Plt Count 266 Neut % (Auto) 75.2 H Lymph % (Auto) 17.7 L [place] % (Auto) 6.0 Eos % (Auto) 0.3 L Baso % (Auto) 0.8 Neut # (Auto) 00968 H Lymph # (Auto) 2600 [place] # (Auto) 900 Eos # (Auto) 0 Baso # (Auto) 100 SARS-CoV-2 (PCR) Negative Blood Type A Positive Antibody Screen Negative 09/01/21 05:37 WBC 16.8 H RBC 3.38 L Hgb 11.1 L Hct 31.6 L MCV 93.5 MCH 32.9 MCHC 35.2 RDW 13.6 Plt Count 219 Neut % (Auto) 69.7 Lymph % (Auto) 19.3 L [place] % (Auto) 9.8 Eos % (Auto) 0.3 L Baso % (Auto) 0.9 Neut # (Auto) 17192 H Lymph # (Auto) 3200 [place] # (Auto) 1600 H Eos # (Auto) 0 Baso # (Auto) 100 SARS-CoV-2 (PCR) Blood Type Antibody Screen Assessment & Plan Assessment and Plan (1) Vaginal delivery: Status: Acute Plan day: 1 plan OB: routine care Time Spent With Patient Time: Total time spent is greater than 50% in coordination of care (as documented) at patient's floor/unit and/or counseling patient: Time with patient: less than 15 minutes
[2021-09-01] MEDS: LANOLIN OINT 7 GM 1 APPLIC TOP (10:46)
[2021-09-01 10:47] VITALS: TEMP 37
[2021-09-01] MEDS: ACETAMINOPHEN 325 MG TABLET 650 MG PO (10:47)
[2021-09-02] MEDS: IBUPROFEN 600 MG TABLET PO ×2 (02:31→08:12)
[2021-09-02] MEDS: ACETAMINOPHEN 325 MG TABLET 650 MG PO (08:12)
--- NOTE | 2021-09-02 09:09 | P.DS_ITS ---
Discharge Providers Provider Date of admission: 08/31/21 11:39 Discharge Date: 09/02/21 Primary care physician: Yulia Mcgowan DO Consults: 08/31/21 12:14 Consult to Anesthesiology Urgent Comment: Consulting Provider: Anesthesiologist Reason for consultation: epidural Has provider been notified: No 09/01/21 21:32 Consult to Service Operator Routine Comment: Discharge provider: Iris Webb MD Summary Hospital Course Date Patient Seen: 09/02/21 Time Patient Seen: 09:09 Diagnoses: spontaneous vaginal delivery Hospital Course: Patient arrived in Labor and delivery in active labor. She had a spontaneous vaginal delivery of a viable female . She is urinating and ambulating well. Minimal pain. No headaches, scotomata, epigastric pain. Peripartum Data Infant Delivery Method: Natural Vaginal Laceration Description: None Procedures: Epidural catheter, spontaneous vaginal delivery complications: none 1: Gender: Female Disposition of : home Discharge Diagnosis (1) Vaginal delivery: Status: Acute Status at Discharge Cognitive/behavioral status at discharge: oriented Functional status at discharge: independent ambulation Overall status at discharge: patient is progressing back to baseline Time Spent with Patient Time attestation: Total time spent providing and/or coordinating discharge services: Time spent: Less than 30 minutes Objective Labs Result Diagrams: 09/01/21 05:37 Exam Vital Signs (past 8 hours): blood pressure 122/77, pulse of 87, temperature 98.3 Narrative Exam Narrative: Abdomen is soft, nontender. Uterus is firm, at U, nontender. Mild lochia. Extremities with trace edema and nontender. Patient is Rh positive, rubella immune, received Tdap in the 3rd trimester. Discharge Plan Discharge Plan Patient Disposition: Home Discharge orders & Medications Prescriptions: No Action No Known Home Medications 0RF Follow up/Referrals: Yulia Mcgowan DO [Primary Care Provider] - 6 Weeks Diet/Activity/Treatments Diet: Regular Activity: nothing in vagina for 6 weeks Skin/Wound/Dressing Care Report to your healthcare provider any signs of infection, such as:: chills, fever and increased pain Discharge Data Primary Care Provider: Yulia Mcgowan
[2021-09-02 10:53] VITALS: BP 122/77; PULSE 87; RESP 16; TEMP 36.8
== END 2021-09-02 14:00 | disposition home or self-care (01) | DRG 807 ==
PROVIDERS: Specialist; Admitting Provider Family Medicine; PCP Family Medicine; Referring Provider Family Medicine; Visit Provider Family Medicine
DX: O80 Encounter for full-term uncomplicated delivery (principal); Z37.0 Single live birth; Z3A.39 39 weeks gestation of pregnancy; Z20.822 Contact with and (suspected) exposure to COVID-19
CPT/HCPCS: 01967; 36415; 59025; 59050; 59400; 59409; 85025; 86850; 86900; 86901; 87635; C9803; G0378; G0379; J3010